=== PATIENT | male | born 1965 | race Caucasian/White ===

== ENCOUNTER 2017-12-15 13:49 | Emergency (ER) | payer MEDICAID ==
[~2017-12-15] VITALS: Ht 180.3 cm; Wt 68.5 kg
[~2017-12-15 13:49] MED LIST: AMOX1TAB64 PO; PRED5TAB PO; SERT100T PO; TRAZ-137 PO
[2017-12-15 14:06] VITALS: BP 119/65
[2017-12-15 14:51] LABS: BASOPHILS # (AUTO) 0.39 x10^3/uL (0-0.1); BASOPHILS % (AUTO) 3 % (0-1); EOSINOPHILS # (AUTO) 0.17 x10^3/uL (0-0.4); EOSINOPHILS % (AUTO) 1 % (1-7); LYMPHOCYTES # (AUTO) 1.64 x10^3/uL (1-3.4); LYMPHOCYTES % (AUTO) 11 % (22-44); MD NO; MEAN CORPUSCULAR HEMOGLOBIN 29.3 pg (27.5-34.5); MEAN CORPUSCULAR HGB CONC 32.8 g/dL (33.2-36.2); MEAN CORPUSCULAR VOLUME 89.4 fL (81-97); MEAN PLATELET VOLUME 8.4 fL (7.4-10.4); MONOCYTES # (AUTO) 1.38 x10^3/uL (0.2-0.8); MONOCYTES % (AUTO) 9 % (2-9); NEUTROPHILS # (AUTO) 11.14 x10^3/uL (1.8-6.8); NEUTROPHILS % (AUTO) 76 % (42-75); PLATELET COUNT 392 x10^3/uL (130-400); RED CELL DISTRIBUTION WIDTH 14.9 % (9.4-14.8)
[2017-12-15 15:10] LABS: ALBUMIN 2.4 g/dL (3.4-5.0); ANION GAP 10 mmol/L (5-15); CALCIUM 8.5 mg/dL (8.5-10.1); CHLORIDE 103 mmol/L (98-107)
[2017-12-15 15:13] LABS: CREATININE 0.74 mg/dL (0.7-1.3)
[2017-12-15] MEDS ORDERED: DIPH,PERTUSS(ACELL),TET VAC/PF 0.5 ML IM-VACC ONE ×2 (15:48→17:00)
[2017-12-15] MEDS ORDERED: HYDROcodone/APAP 5/325 TABLET ONE (15:48)
[2017-12-15] MEDS ORDERED: LIDOCAINE 1%-EPI 1:100K, 20ML ONE (15:48)
[2017-12-15] MEDS ORDERED: LIDOCAINE 1%-EPI 1:100K, 20ML SQ ONE (16:00)
[2017-12-15] MEDS ORDERED: HYDROcodone/APAP 5/325 TABLET PO ONE (16:00)
== END 2017-12-15 17:42 | disposition home or self-care (01) ==
LOC: ED 17:36
DX: L02.415 Cutaneous abscess of right lower limb (principal); Z59.0 Homelessness
CPT/HCPCS: 10060; 36415; 80048; 82040; 85025; 90471; 90715